=== PATIENT | female | born 1985 | race Caucasian/White ===

== ENCOUNTER → 2017-12-21 10:05 | Outpatient (CLI) | payer OTHER, SELFPAY ==
[2017-12-21 13:39] LABS: Glucose Challenge Gest 1H 50g 138 mg/dL (70-140)
[2017-12-21 13:44] LABS: Hematocrit 32.1 % (37-47); Hemoglobin 10.8 g/dl (12.0-15.0); Mean Corp Hgb Conc 33.6 g/gl (32-36); Mean Corpuscular Hgb 30.3 pg (27.0-32.0); Mean Corpuscular Volume 90.2 fL (81-99); Mean Platelet Vol. 10.5 fl (6.2-12.0); Platelet Count 285 K/mm3 (150-450); RBC Distribution Width CV 12.7 % (11.6-14.6); Red Blood Count 3.56 M/mm3 (4.2-5.4); Scan Indicated on CBC? Y/N NO; White Blood Count 7.3 K/mm3 (4.4-11.0)
== END ==
PROVIDERS: Visit Provider Obstetrics & Gynecology
DX: Z34.83 Encounter for supervision of other normal pregnancy, third trimester (principal)
CPT/HCPCS: 36415; 82950; 85027

== ENCOUNTER 2018-03-07 09:55 | Inpatient (IN) | payer OTHER, SELFPAY ==
--- NOTE | 2018-03-02 09:18 | NURSING ---
FOB also rh-
[2018-03-02 09:35] VITALS: BMI 28.6
[2018-03-07] VITALS (18 sets, daily range): BP systolic 83–111; BP diastolic 45–75; PULSE 78–110; RESP 16–20; TEMP 36.2–37.3; O2SAT 87–100; BMI 27.7
[2018-03-07] MEDS: Lactated Ringers 1,000 ML 999 ML IV (10:36)
[2018-03-07 11:01] LABS: Absolute Lymphocyte Count 1.31 X10^3/ul (0.83-4.51); Absolute Neutrophil Count 5.2 X10^3/uL (2.0-7.7); Basophil# 0.01 X10^3/uL; Basophil% 0.1 % (0-1); Eosinophil# 0.03 X10^3/uL; Eosinophils% 0.4 % (0-5); Hematocrit 37.5 % (37-47); Hemoglobin 12.1 g/dl (12.0-15.0); Lymphocyte # 1.31 X10^3/ul (4.0); Lymphocyte % 18.9 % (19-41); Mean Corp Hgb Conc 32.3 g/gl (32-36); Mean Corpuscular Hgb 28.7 pg (27.0-32.0); Mean Corpuscular Volume 88.9 fL (81-99); Mean Platelet Vol. 11.2 fl (6.2-12.0); Monocyte# 0.38 X10^3/uL; Monocyte% 5.5 % (0-10); Neutrophil # 5.19 X10^3/uL (2.7-7.7); Neutrophil % 74.8 % (47-70); Platelet Count 190 K/mm3 (150-450); RBC Distribution Width CV 16.1 % (11.6-14.6); RBC Distribution Width SD 52.2 fl (35.1-43.9); Red Blood Count 4.22 M/mm3 (4.2-5.4); White Blood Count 6.9 K/mm3 (4.4-11.0)
[2018-03-07 11:02] LABS: POSITIVE COUNT NO; POSITIVE DIFFERENTIAL NO; POSITIVE MORPHOLOGY NO
[2018-03-07 11:06] LABS: International Normalized Ratio 0.9; Prothrombin Time (Protime)PT. 12.1 SECONDS (11.7-14.9)
[2018-03-07 11:07] LABS: Partial Thromboplast Time 26.4 Seconds (24.1-36.2)
[2018-03-07] MEDS: Lactated Ringers 1,000 ML 150 ML IV (11:37)
[2018-03-07] MEDS: Sodium Citrate/Citric Acid 30 ML UDC PO (11:52)
--- NOTE | 2018-03-07 12:00 | PCM.DCCSEC ---
Discharge Diet: No Restrictions Discharge Activity: May not drive while taking narcotic pain medications., May Shower, May Take a Tub Bath Return to work on:: 04/24/18 May resume sexual activity in: 4-6 weeks Lifting Restrictions: 20 pounds Additional Activity Instructions:: Nothing in the vagina for 4-6 weeks. You may return to work/school in 6 weeks. Change Dressing in (Days):: 4 Remove Dressing in (days):: 4 Cleanse incision/area with: Soap & Water, Keep Dressing Clean & Dry Additional Instructions: If you experience any of the following, contact your healthcare provider. Bleeding that soaks a pad every hour for 2 hours Fever 100.4 or higher Unrelieved incision or abdominal pain Swelling, redness, discharge or bleeding from your incision Problems urinating (including inability to urinate or burning while urinating). Visual changes Severe headache Flu-like symptoms Pain or redness in one of both of your breasts Pain, warmth, tenderness or swelling in your legs, especially the calf area Frequent nausea and vomiting Symptoms of depression or anxiety If you experience any of the following, call 911 or go to the nearest Emergency Room. Chest pain Problems breathing Seizure activity Partial or complete paralysis of a body part, slurred speech, weakness or drooping of the face, or a sudden inability to walk or hold your balance Allergies/Adverse Reactions: Allergies No Known Allergies Allergy (Verified 07/07/15 06:04) Medications to take at Discharge Vits [Prenatabs FA] 1 tablet PO DAILY 07/04/15 Docusate Sodium [Colace] 100 mg PO BID #30 cap 03/07/18 Naproxen 250 - 500 mg PO Q8H PRN PRN #30 03/07/18 The following prescriptions were given: Naproxen 250 - 500 mg PO Q8H PRN PRN #30 PRN Reason: Mild-Mod Pain (-01/12) Docusate Sodium [Colace] 100 mg PO BID #30 cap Follow-Up: Call to make an appointment with your doctor for an incision check in 1-2 weeks. You will also need a 6 week post- follow up appointment. Test results from this visit will be discussed in further detail at your follow-up appointment, if applicable. Please Follow Up With: Yojana Aguilar MD - [phone] When: Call to make an appointment for an incision check in 2 weeks. Primary Care Physician: Care Physician,No Primary [Primary Care Provider] - Proposed Discharge Date: 03/09/18
--- NOTE | 2018-03-07 12:05 | DCINST_ITS ---
Discharge Diet: No Restrictions Discharge Activity: May not drive while taking narcotic pain medications., May Shower, May Take a Tub Bath Return to work on:: 04/24/18 May resume sexual activity in: 4-6 weeks Lifting Restrictions: 20 pounds Additional Activity Instructions:: Nothing in the vagina for 4-6 weeks. You may return to work/school in 6 weeks. Change Dressing in (Days):: 4 Remove Dressing in (days):: 4 Cleanse incision/area with: Soap & Water, Keep Dressing Clean & Dry Additional Instructions: If you experience any of the following, contact your healthcare provider. * Bleeding that soaks a pad every hour for 2 hours * Fever 100.4 or higher * Unrelieved incision or abdominal pain * Swelling, redness, discharge or bleeding from your incision * Problems urinating (including inability to urinate or burning while urinating) . * Visual changes * Severe headache * Flu-like symptoms * Pain or redness in one of both of your breasts * Pain, warmth, tenderness or swelling in your legs, especially the calf area * Frequent nausea and vomiting * Symptoms of depression or anxiety If you experience any of the following, call 911 or go to the nearest Emergency Room. * Chest pain * Problems breathing * Seizure activity * Partial or complete paralysis of a body part, slurred speech, weakness or drooping of the face, or a sudden inability to walk or hold your balance Allergies/Adverse Reactions: Allergies No Known Allergies Allergy (Verified 07/07/15 06:04) Medications to take at Discharge Vits [Prenatabs FA] 1 tablet PO DAILY 07/04/15 Docusate Sodium [Colace] 100 mg PO BID #30 cap 03/07/18 Naproxen 250 - 500 mg PO Q8H PRN PRN #30 03/07/18 The following prescriptions were given: Naproxen 250 - 500 mg PO Q8H PRN PRN #30 PRN Reason: Mild-Mod Pain (-01/12) Docusate Sodium [Colace] 100 mg PO BID #30 cap Follow-Up: Call to make an appointment with your doctor for an incision check in 1-2 weeks. You will also need a 6 week post- follow up appointment. Test results from this visit will be discussed in further detail at your follow- up appointment, if applicable. Please Follow Up With: Yojana Aguilar MD - [phone] When: Call to make an appointment for an incision check in 2 weeks. Primary Care Physician: Care Physician,No Primary [Primary Care Provider] - Proposed Discharge Date: 03/09/18
[2018-03-07] MEDS: Oxytocin 30 units/NS 500 ml 30 UNITS/500 ML IV.SOLN 167 UNITS IV (12:19)
[2018-03-07] MEDS: Ketorolac 30 MG/ML Syringe IV ×2 (12:30→18:31)
--- NOTE | 2018-03-07 12:50 | OP.PCM_ITS ---
Operative Report Date of Procedure: 03/07/18 PROCEDURE: Primary C section. Preoperative diagnosis: 39 wk EGA induction Prior C section deliveries Planned repeat C section Postop diagnosis: 39 wk EGA induction Prior C section deliveries Planned repeat C section Anesthesia: Spinal Melo Freeman CRNA Surgeon: Yojana Aguilar MD Gre[employer] Goods Inspector: MICHAEL Robison EBL 600 cc Complications: none Drains: Chua draining clear yellow Fluids: replacement LR Findings: At amniotomy, clear fluid was noted. Brown viable female in vertex presentation. Apgars 8/9, Baby weight 3023 gm. There were normal appearing fallopian tubes and ovaries bilaterally, and a normal appearing uterus with very thin lower uterine segment noted. PATH: cord blood collected. Narrative account: After the risks, benefits and alternatives of the procedure were reviewed with the patient, informed consent was obtained. The patient was taken to the Operating room with an IV running, and was positioned on the operating table in a seated position for placement of the spinal. Once the spinal was administered she was returned to dorsal supine position with leftward displacement of the uterus, and prepped and draped in the usual sterile fashion. Once the spinal was deemed adequate, a Pfannenstiel skin incision was created using the knife through the prior C section scar. The incision was carried down to the rectus fascia using the knife. The fascia was nicked in the midline. The fascial incision was extended bilaterally using curved Hatch scissors. The superior aspect of the fascial incision was grasped with Lilia clamps and tented up and the underlying rectus abdominal muscles were dissected free. In a similar manner, the inferior aspect of the facial incision was grasped with Lilia clamps tented up and the underlying rectus abdominal muscles were dissected free. The rectus abdominis muscles were in the midline and the peritoneum was identified and entered by blunt dissection high in the incision. Using the automatic splicing machine operator's fingertips to guide dissection and Metzenbaum scissors the peritoneal incision was extended superiorly and then inferiorly The peritoneum was stretched laterally and a bladder blade was inserted. The uterine incision was then created using Metzenbaum scissors staying superior to the visible bladder reflection. The operators fingertips were used to extend the uterine incision by blunt dissection in a caudad- cephalad orientation . Clear fluid was noted at amniotomy. The vertex was then delivered atraumatically through the incision and the baby was then delivered easily onto the abdomen. The OP and nares were bulb suctioned on the abdomen. The cord was clamped x two and cut. And the infant was handed off to the nurse awaiting delivery after briefly showing her to her parents. The baby had good grimace and a spontaneous , vigorous cry. The placenta was then delivered. The uterus was exteriorized and cleared of clots and debris . The uterine incision was repaired with 1 Vicryl in a running locked fashion. A second imbricating layer was then placed, using 1 Monocryl in running nonlocked fashion. The right uterine angle was oversewn with figure of eight and horizontal mattress stitch of 1-0 Vicryl. Excellent hemostasis noted. Bovie cautery was used to treat any bleeding areas. At this point the uterus was returned to the abdominal cavity. The gutters were cleared of clots and debris and the incision at the uterus was inspected. Adequate hemostasis was noted. Marcelo was dusted over this layer. The peritoneal edges and rectus abdominis muscles were reapproximated in the midline with vertical mattress stitches and figure of eight stitches of 1 Vicryl . Excellent hemostasis was noted at the subfascial space. Marcelo was dusted over this layer. The fascia was then closed in a running nonlocked fashion with a Stratofix suture. The Subcutaneous fatty tissue was Bovie cauterized as needed for hemostasis. Marcelo was liberally dusted at this layer to prevent seroma formation. This layer was then reapproximated with a single layer of running 3-0 Vicryl to eliminate space. The skin edges were closed in a Subcuticular stitch of 4-0 Monocryl. The incision was cleansed. Cavilon, Steristrips, and a Mepilex dressing were then applied. The patient was then transferred to the recovery room bed in stable condition after tolerating the procedure well. Sponge, lap, needle and instrument counts correct times two. Medications given preop and intraoperatively included: Ancef 2 gm IV given microeconomics professor to the operating room. The patient also received Pitocin given IV after cord clamp, Toradol 30 mg IV times one. For a complete listing of medications given preop and intraoperatively, please see the anesthesia record.
[2018-03-07] MEDS: Lactated Ringers 1,000 ML 100 ML IV (19:33)
[2018-03-08] VITALS (9 sets, daily range): BP systolic 91–123; BP diastolic 52–64; PULSE 74–104; RESP 14–18; TEMP 36.6–37.4; O2SAT 97–100
[2018-03-08] MEDS: Ketorolac 30 MG/ML Syringe IV ×4 (00:18→17:51)
[2018-03-08] MEDS: 0.9% Saline Lock 10 ML Syringe IV ×4 (00:19→17:50)
[2018-03-08 06:59] LABS: Hematocrit 31.6 % (37-47); Hemoglobin 10.2 g/dl (12.0-15.0); Mean Corp Hgb Conc 32.3 g/gl (32-36); Mean Corpuscular Hgb 29.1 pg (27.0-32.0); Mean Corpuscular Volume 90.3 fL (81-99); Mean Platelet Vol. 11.2 fl (6.2-12.0); Platelet Count 176 K/mm3 (150-450); RBC Distribution Width CV 16.3 % (11.6-14.6); RBC Distribution Width SD 53.5 fl (35.1-43.9)
[2018-03-08 07:04] LABS: Scan Indicated on CBC? Y/N NO
--- NOTE | 2018-03-08 07:12 | PN.OBGYN_ITS ---
Subjective: POD#2 Repeat C section Doing well. Minimal pain. Breast feeding and baby cluster fed all night. Objective: Lying in bed, NAD - Physical Exam General: Alert, Oriented x3, Cooperative, No apparent distress HEENT: Atraumatic Neck: Supple Abdomen: Soft - Fundus firm minimally tender with postop status, at 1 cm inferior to umbilicus Skin: Incision - Mepilex intact. one 5 mm (approx) spot of shadow drainage. Neurological: Cranial nerves II-XII grossly intact Psych/Mental Status: Normal Affect Vital Signs Temp Pulse Resp BP Pulse Ox 97.9 F 81 16 112/64 98 03/08/18 04:50 03/08/18 06:17 03/08/18 06:17 03/08/18 04:50 03/08/18 06:17 Oxygen Delivery Method Room Air Weight: 73.3 kg Body Mass Index (BMI) 27.7 Intake and Output for Last 24 Hours 03/06/18 03/07/18 03/08/18 23:59 23:59 23:59 Intake Total 2985 / 2985 1098 / 1098 Output Total 900 / 900 2200 / 2200 Balance 2085 / 2085 -1102 / -1102 Laboratory Tests Past 24 Hrs 03/07/18 03/07/18 03/07/18 10:36 10:36 10:36 WBC 6.9 RBC 4.22 Hgb 12.1 Hct 37.5 MCV 88.9 MCH 28.7 MCHC 32.3 RDW 16.1 H RDW Differential 52.2 H Plt Count 190 MPV 11.2 Immature Gran % (Auto) 0.300 Neut % (Auto) 74.8 H Lymph % (Auto) 18.9 L [place] % (Auto) 5.5 Eos % (Auto) 0.4 Baso % (Auto) 0.1 Absolute Neuts (auto) 5.2 Absolute Lymphs (auto) 1.31 Total Counted Not Reportable PT 12.1 INR 0.9 APTT 26.4 Blood Type A NEGATIVE Antibody Screen NEGATIVE 03/08/18 06:15 WBC 8.0 RBC 3.50 L Hgb 10.2 L Hct 31.6 L MCV 90.3 MCH 29.1 MCHC 32.3 RDW 16.3 H RDW Differential 53.5 H Plt Count 176 MPV 11.2 Immature Gran % (Auto) Neut % (Auto) Lymph % (Auto) [place] % (Auto) Eos % (Auto) Baso % (Auto) Absolute Neuts (auto) Absolute Lymphs (auto) Total Counted PT INR APTT Blood Type Antibody Screen Medical Necessity - Tobacco Use Smoking Status: Never smoker Assessment/Plan POD#1 Repeat C/S Stable postop. Inc diet and activity as tolerated. D/C ceballos for voiding trial. S/L IV for continued toradol today. Continue care.
[2018-03-08] MEDS: Senna/Docusate Sodium 1 Tablet PO (10:17)
[2018-03-08] MEDS: Prenatal Vits Tablet 1 TABLET PO (10:17)
[2018-03-08] MEDS: Acetaminophen 500 MG Tablet 1000 MG PO (15:07)
[2018-03-08] MEDS: oxyCODONE 5 MG Tablet PO (21:22)
[2018-03-09] MEDS: Ketorolac 30 MG/ML Syringe IV ×2 (00:29→06:04)
[2018-03-09 02:05] VITALS: BP 110/72; PULSE 81; RESP 16; TEMP 36.3
[2018-03-09] MEDS: 0.9% Saline Lock 10 ML Syringe IV (06:04)
--- NOTE | 2018-03-09 07:28 | PCM.PN.OB ---
Subjective: POD#2 Repeat C section Doing well. Last toradol given and S/L removed this am. Nursing and baby did a lot of cluster feeding last pm. Wants to stay, declines dischg today. No concerns voiced other than fatigue. - Physical Exam General: Alert, Oriented x3, Cooperative, No apparent distress HEENT: Atraumatic Neck: Supple Abdomen: Soft - fundus firm NT inferior to umbilicus Skin: Incision - CDI. with 5 mm of shadow drainage (stable) at midportion of incision. Neurological: Cranial nerves II-XII grossly intact Psych/Mental Status: Normal Affect Vital Signs Temp Pulse Resp BP Pulse Ox 97.4 F L 81 16 110/72 97 03/09/18 02:05 03/09/18 02:05 03/09/18 02:05 03/09/18 02:05 03/08/18 15:17 Oxygen Delivery Method Room Air Weight: 73.3 kg Body Mass Index (BMI) 27.7 Intake and Output for Last 24 Hours 03/07/03/08/18 03/09/18 23:59 23:59 23:59 Intake Total 2985 / 2985 1098 / 1098 Output Total 900 / 900 4700 / 4700 Balance 2085 / 2085 -3602 / -3602 Medical Necessity - Tobacco Use Smoking Status: Never smoker Assessment/Plan POD#2 Repeat C/S Stable postop. S/L removed this AM. Begin all po meds. Prefers to stay. Continue care.
--- NOTE | 2018-03-09 09:12 | NURSING ---
0720 pt has been up all night nursing ; pt very sleepy wants to sleep this morning.
[2018-03-09 10:00] VITALS: BP 115/75; PULSE 92; RESP 16; TEMP 36.6
[2018-03-09] MEDS: Senna/Docusate Sodium 1 Tablet PO (10:30)
[2018-03-09] MEDS: Prenatal Vits Tablet 1 TABLET PO (10:30)
[2018-03-09] MEDS: Acetaminophen 500 MG Tablet 1000 MG PO ×2 (10:30→19:39)
[2018-03-09 13:22] VITALS: BP 117/71; PULSE 97; RESP 18; TEMP 36.6
[2018-03-09] MEDS: Naproxen 250 MG Tablet PO (13:53)
[2018-03-09] MEDS: oxyCODONE 5 MG Tablet PO ×2 (16:15→22:44)
[2018-03-09 20:40] VITALS: BP 106/67; PULSE 90; RESP 18; TEMP 36.4; O2SAT 98
[2018-03-10 03:15] VITALS: BP 112/82; PULSE 99; RESP 18; TEMP 36.7; O2SAT 98
[2018-03-10] MEDS: Naproxen 250 MG Tablet PO ×2 (03:46→14:13)
--- NOTE | 2018-03-10 07:01 | PCM.PN.OB ---
Subjective: POD#2 Repeat C/S Doing well. Milk is coming in. Baby nursing well. More rested today and would like to go home today. Objective: Sitting up in bed, nursing baby. - Physical Exam General: Alert, Oriented x3, Cooperative, No apparent distress HEENT: Atraumatic Neck: Supple Neurological: Cranial nerves II-XII grossly intact Psych/Mental Status: Normal Affect Vital Signs Temp Pulse Resp BP Pulse Ox 98.0 F 99 18 112/82 H 98 03/10/18 03:15 03/10/18 03:15 03/10/18 03:15 03/10/18 03:15 03/10/18 03:15 Oxygen Delivery Method Room Air Weight: 73.3 kg Body Mass Index (BMI) 27.7 Intake and Output for Last 24 Hours //18 03/09/18 03/10/18 23:59 23:59 23:59 Intake Total 1098 / 1098 Output Total 4700 / 4700 Balance -3602 / -3602 Medical Necessity - Tobacco Use Smoking Status: Never smoker Assessment/Plan POD#3 Repeat C/S Stable postop. Plans to go home today. RTO in 2 wk for postop incision check.
--- NOTE | 2018-03-10 07:03 | PCM.DC.SUM ---
Discharge Date and Diagnosis Date of Admission: 03/07/18 - 39 wk EGA repeat C/S Date of Discharge: 03/10/18 - S/P repeat C/S Hospital Course and Treatment Operations: - - repeat C section Summary of Care Provided: The patient is a 32 year old female at 39 wk EGA. Presents for repeat C/S. Declines BPS. Repeat C section performed on 03/07/18: procedure uncomplicated with EBL 600 cc. Delivered [place] female 7# 10 oz. Postoperative course uneventful. Hgb stable. 12.1 g/dl. to 10.2 g/dl postop Incision CDI. Afeb. Pain control adequate Breast feeding. Requested dischg on POD#3 . Discharge Diet: No Restrictions Discharge Activity: May not drive while taking narcotic pain medications., May Shower, May Take a Tub Bath Return to work on:: 04/24/18 May resume sexual activity in: 4-6 weeks Additional Activity Instructions:: Nothing in the vagina for 4-6 weeks. You may return to work/school in 6 weeks. Change Dressing in (Days):: 4 Remove Dressing in (days):: 4 Cleanse incision/area with: Soap & Water, Keep Dressing Clean & Dry Home Medications: Medications to take at Discharge Vits [Prenatabs FA] 1 tablet PO DAILY 07/04/15 Docusate Sodium [Colace] 100 mg PO BID #30 cap 03/07/18 Naproxen 250 - 500 mg PO Q8H PRN PRN #30 03/07/18 Oxycodone [Oxyir] 5 - 10 mg PO Q6H PRN PRN 4 Days #20 tablet 03/07/18 Following Prescrptions Were Given to Patient: Oxycodone [Oxyir] 5 - 10 mg PO Q6H PRN PRN 4 Days #20 tablet PRN Reason: Mod-Severe Pain (4-10/10) Naproxen 250 - 500 mg PO Q8H PRN PRN #30 PRN Reason: Mild-Mod Pain (1-5/10) Docusate Sodium [Colace] 100 mg PO BID #30 cap Primary Care Physician: Care Physician,No Primary [Primary Care Provider] - Please Follow Up With: Yojana Aguilar MD - [phone] When: Call to make an appointment for an incision check in 2 weeks. Medical Necessity - Tobacco Use Smoking Status: Never smoker Meaningful Use Info Meaningful Use Diagnoses (Choose all that apply): None applicable
[2018-03-10] MEDS: Senna/Docusate Sodium 1 Tablet PO (09:16)
[2018-03-10 09:20] VITALS: BP 107/67; PULSE 88; RESP 20; TEMP 36.8; O2SAT 98
[2018-03-10] MEDS: Prenatal Vits Tablet 1 TABLET PO (10:43)
[2018-03-10] MEDS: Acetaminophen 500 MG Tablet 1000 MG PO (10:44)
[2018-03-10 14:15] VITALS: BP 112/73; PULSE 96; TEMP 37.2; O2SAT 98
== END 2018-03-10 15:30 | disposition home or self-care (01) | DRG 766 ==
PROVIDERS: Admitting Provider Obstetrics & Gynecology; Visit Provider Obstetrics & Gynecology
PROC: 10D00Z1 Extraction of Products of Conception, Low, Open Approach (ICD-10-PCS; CPT 59514; principal; 2018-03-07 11:45)
DX: O34.219 Maternal care for unspecified type scar from previous cesarean delivery (principal); O99.02 Anemia complicating childbirth; Z79.899 Other long term (current) drug therapy; Z3A.39 39 weeks gestation of pregnancy; Z37.0 Single live birth
CPT/HCPCS: 85025; 85027; 85610; 85730; 86850; 86900; 99218; J7120; A4216; G0378; J2405

== ENCOUNTER → 2020-08-04 15:40 | Outpatient (CLI) | payer BC, SELFPAY ==
[2018-03-07 10:15] VITALS: BMI 27.7
[2020-08-07 22:06] LABS: HPV Reflexed? NOT INDICATED
== END ==
PROVIDERS: Visit Provider Obstetrics & Gynecology
DX: Z12.4 Encounter for screening for malignant neoplasm of cervix (principal)
CPT/HCPCS: 88175; G0145